=== PATIENT | male | born 1980 | race Caucasian/White ===

== ENCOUNTER 2020-08-05 02:17 | Emergency (ER) | payer BC ==
--- NOTE | 2020-08-05 02:29 | EDM.PDOC ---
ED [facility] GENERAL MEDICAL PROBLEM - General Stated Complaint: hip pain Time Seen by Provider: 08/05/20 02:17 Source of Information: Reports: Patient, EMS History Limitations: Reports: Intoxication - History of Present Illness INITIAL COMMENTS - FREE TEXT/NARRATIVE: Emergency department comes in by EMS with complaint of left hip injury. Patient was found to be out side after he had tripped and fallen over. It is unknown the length of time that he was outside however his friends had assisted by lifting him into the house in hopes of him sleeping it off until morning. The patient states he did have quite a few beers after work last night. He is unable to recall the length of time. He denies hitting his head or losing consciousness. He states he is able to remember all the events before and after falling over the cat. He states that he was just unable to get up due to the left hip discomfort and pain. He was able to contact friends to assist him into the house. Patient then began to have more extreme pain and ended up calling 911 for further assistance and evaluation emergency department the left hip pain. Patient denies any recent injuries or surgeries to the left hip. Patient also denies any anticoagulant use. Onset: Gradual Quality: Reports: Throbbing Severity: Moderate Improves with: Reports: Rest Worsens with: Reports: Movement Context: Reports: Trauma Associated Symptoms: Reports: No Other Symptoms Left Hip Pain Score (Numeric/FACES): 7 ED ROS GENERAL - Review of Systems Review Of Systems: Comprehensive ROS is negative, except as noted in HPI. Constitutional: Reports: No Symptoms HEENT: Reports: No Symptoms Respiratory: Reports: No Symptoms Cardiovascular: Reports: No Symptoms Endocrine: Reports: No Symptoms GI/Abdominal: Reports: No Symptoms : Reports: No Symptoms Musculoskeletal: Reports: Leg Pain Skin: Reports: No Symptoms Neurological: Reports: No Symptoms Psychiatric: Reports: No Symptoms Hematologic/Lymphatic: Reports: No Symptoms Immunologic: Reports: No Symptoms ED EXAM, GENERAL - Physical Exam Exam: See Below Exam Limited By: No Limitations General Appearance: Alert, WD/WN, No Apparent Distress Eye Exam: Bilateral Eye: EOMI, PERRL Ears: Normal External Exam, Normal Canal, Hearing Grossly Normal Ear Exam: Bilateral Ear: Canal Normal, TM normal Nose: Normal Inspection, Normal Mucosa, No Blood Throat/Mouth: Normal Inspection, Normal Lips, Normal Teeth, Normal Voice Head: Atraumatic, Normocephalic Neck: Normal Inspection, Supple, Non-Tender, Full Range of Motion Respiratory/Chest: No Respiratory Distress, Lungs Clear, Normal Breath Sounds, No Accessory Muscle Use, Chest Non-Tender Cardiovascular: Normal Peripheral Pulses, Regular Rate, Rhythm, No Edema, No Rub Peripheral Pulses: 4+: Radial (L), Radial (R) GI/Abdominal: Normal Bowel Sounds, Soft, Non-Tender, No Abnormal Bruit, No Mass Back Exam: Normal Inspection, Full Range of Motion Extremities: No Pedal Edema, Normal Capillary Refill, Leg Pain (left leg shortening ) Neurological: Alert, Oriented, CN II-XII Intact, Normal Cognition Psychiatric: Normal Affect, Normal Mood Skin Exam: Warm, Dry, Intact, Normal Color Course - Vital Signs Last Recorded V/S: Last Vital Signs Temp 36.9 C 08/05/20 02:25 Pulse 125 H 08/05/20 02:25 Resp 18 08/05/20 02:25 BP 140/81 08/05/20 02:25 Pulse Ox 94 L 08/05/20 02:25 - Orders/Labs/Meds Orders: Active Orders 24 hr Category Date Time Status Marks Catheter Insertion [Insert Urinary Catheter] [OM. Care 08/05/20 03:30 Ordered PC] Q24H Urinary Catheter Assessment [RC] ASDIRECTED Care 08/05/20 03:18 Active Hip Min 1V w Pelvis Lt [CR] Stat Exams 08/05/20 02:22 Taken Lactated Ringers [Ringers, Lactated] 1,000 ml Med 08/05/20 03:30 Active IV ASDIRECTED Medication Orders Lactated Ringer's (Ringers, Lactated) 1,000 mls @ 150 mls/hr IV ASDIRECTED CHANDNI Last Admin: 08/05/20 03:26 Dose: 150 mls/hr Documented by: BIETAMY Labs: Laboratory Tests 08/05/20 08/05/20 08/05/20 Range/Units 02:35 02:35 02:35 WBC 8.3 (4.0-10.0) x10^3/uL RBC 3.85 L (4.5-6.0) x10^6/uL Hgb 12.1 L (14.0-18.0) g/dL Hct 35.1 L (40.0-52.0) % MCV 91.2 (78.0-93.0) fL MCH 31.4 (26.0-32.0) pg MCHC 34.5 (32.0-36.0) g/dL RDW Coeff of Jeaneth 14.1 (10.0-15.0) % Plt Count 115 L (130-400) x10^3/uL Neut % (Auto) 80.5 H (50.0-80.0) % Lymph % (Auto) 10.4 L (25.0-50.0) % [place] % (Auto) 8.7 (2.0-11.0) % Eos % (Auto) 0.0 (0.0-4.0) % Baso % (Auto) 0.4 (0.2-1.2) % PT 14.0 H (9.9-12.5) SEC INR 1.3 L (2.0-3.5) Sodium 142 (136-145) mmol/L Potassium 2.3 L* (3.5-5.1) mmol/L Chloride 101 (98-107) mmol/L Carbon Dioxide 25 (21-32) mmol/L Anion Gap 18.3 H (5-15) mmol/L BUN 5 L (7-18) mg/dL Creatinine 0.9 (0.70-1.30) mg/dL Est Cr Clr Drug Dosing TNP Estimated GFR (MDRD) > 60 Glucose 117 H (70-99) mg/dL Calcium 8.0 L (8.5-10.1) mg/dL Corrected Calcium 9.04 (8.5-10.1) mg/dL Total Bilirubin 0.8 (0.2-1.0) mg/dL AST 195 H (15-37) U/L ALT 46 (16-63) U/L Alkaline Phosphatase 246 H (46-116) U/L Creatine Kinase (39-308) U/L Total Protein 7.4 (6.4-8.2) g/dL Albumin 2.7 L (3.4-5.0) g/dL Globulin 4.7 Albumin/Globulin Ratio 0.57 Ethyl Alcohol (0-3) mg/dL 08/05/20 08/05/20 Range/Units 02:35 02:55 WBC (4.0-10.0) x10^3/uL RBC (4.5-6.0) x10^6/uL Hgb (14.0-18.0) g/dL Hct (40.0-52.0) % MCV (78.0-93.0) fL MCH (26.0-32.0) pg MCHC (32.0-36.0) g/dL RDW Coeff of Jeaneth (10.0-15.0) % Plt Count (130-400) x10^3/uL Neut % (Auto) (50.0-80.0) % Lymph % (Auto) (25.0-50.0) % [place] % (Auto) (2.0-11.0) % Eos % (Auto) (0.0-4.0) % Baso % (Auto) (0.2-1.2) % PT (9.9-12.5) SEC INR (2.0-3.5) Sodium (136-145) mmol/L Potassium (3.5-5.1) mmol/L Chloride (98-107) mmol/L Carbon Dioxide (21-32) mmol/L Anion Gap (5-15) mmol/L BUN (7-18) mg/dL Creatinine (0.70-1.30) mg/dL Est Cr Clr Drug Dosing Estimated GFR (MDRD) Glucose (70-99) mg/dL Calcium (8.5-10.1) mg/dL Corrected Calcium (8.5-10.1) mg/dL Total Bilirubin (0.2-1.0) mg/dL AST (15-37) U/L ALT (16-63) U/L Alkaline Phosphatase (46-116) U/L Creatine Kinase 64 (39-308) U/L Total Protein (6.4-8.2) g/dL Albumin (3.4-5.0) g/dL Globulin Albumin/Globulin Ratio Ethyl Alcohol 285 H (0-3) mg/dL Meds: Medications Generic Name Dose Route Start Last Admin Trade Name Freq PRN Reason Stop Dose Admin Lactated Ringer's 1,000 mls @ 150 mls/hr 08/05/20 03:30 08/05/20 03:26 Ringers, Lactated IV 150 mls/hr ASDIRECTED CHANDNI Administration Discontinued Medications Generic Name Dose Route Start Last Admin Trade Name Freq PRN Reason Stop Dose Admin Fentanyl 50 mcg 08/05/20 03:57 08/05/20 04:07 Fentanyl 50 Mcg/Ml Sdv IVPUSH 08/05/20 03:58 50 mcg ONETIME ONE Administration Hydromorphone HCl Confirm 08/05/20 02:42 Hydromorphone 1 Mg/Ml Syringe Administered 08/05/20 02:43 Dose 1 mg .ROUTE .STK-MED ONE Potassium Chloride 20 meq 08/05/20 03:06 08/05/20 04:07 Potassium Chloride 20 Meq Tab.Er PO 08/05/20 03:07 20 meq ONETIME ONE Administration Departure - Departure Time of Disposition: 04:00 Disposition: DC/Tfer to Acute Hospital 02 Condition: Good Clinical Impression: Pelvic fracture Qualifiers: Encounter type: initial encounter Pelvic bone location: unspecified part of pelvis Fracture type: closed Fracture alignment: nondisplaced Qualified Code(s): S32.9XXA - Fracture of unspecified parts of lumbosacral spine and pelvis, initial encounter for closed fracture - Discharge Information *PRESCRIPTION DRUG MONITORING PROGRAM REVIEWED*: Not Applicable *COPY OF PRESCRIPTION DRUG MONITORING REPORT IN PATIENT LEANNE: Not Applicable Referrals: PCP,Unknown [Primary Care Provider] - Forms: Interfacility Transfer EMTALA Sepsis Event Note (ED) - Focused Exam Vital Signs: Vital Signs Temp Pulse Resp BP Pulse Ox 08/05/20 02:25 36.9 C 125 H 18 140/81 94 L - My Orders Last 24 Hours: My Active Orders 08/05/20 02:22 Hip Min 1V w Pelvis Lt [CR] Stat 08/05/20 03:18 Urinary Catheter Assessment [RC] ASDIRECTED 08/05/20 03:30 Marks Catheter Insertion [Insert Urinary Catheter] [OM.PC] Q24H Lactated Ringers [Ringers, Lactated] 1,000 ml IV ASDIRECTED - Assessment/Plan Last 24 Hours: My Active Orders 08/05/20 02:22 Hip Min 1V w Pelvis Lt [CR] Stat 08/05/20 03:18 Urinary Catheter Assessment [RC] ASDIRECTED 08/05/20 03:30 Marks Catheter Insertion [Insert Urinary Catheter] [OM.PC] Q24H Lactated Ringers [Ringers, Lactated] 1,000 ml IV ASDIRECTED Assessment:: 1. left hip pain 2. Left pelvic fracture 3. Hypokalemia Plan: 1. X-ray completed in the emergency department results reviewed with the patient 2. Ice Applied to the affected limb 3. Medication offered to the patient- pt was given Dilaudid prior to arrival 4. Marks catheter inserted 5. Klor-Con given orally for hypokalemia. [facility] care and [facility] of the patient 7. Patient will be transferred to a higher level of care needing further medical and/or surgical interventions 8. Patient and nursing staff was updated regarding the plan of care 9. Patient and family are agreeable to the above plan of care 10. All questions and concerns were addressed with the patient and family prior to discharge
[2020-08-05] MEDS ORDERED: HYDROmorphone 1 MG/ML Syringe ONE (02:42)
[2020-08-05 03:02] LABS: CHLORIDE,CL 101 mmol/L (98-107); SODIUM,NA 142 mmol/L (136-145)
[2020-08-05 03:05] LABS: ANION GAP 18.3 mmol/L (5-15)
[2020-08-05] MEDS ORDERED: Potassium Chloride 20 MEQ Tab.ER PO ONE (03:06)
[2020-08-05] MEDS ORDERED: Lactated Ringers 1,000 ML IV SCH (03:30)
[2020-08-05] MEDS ORDERED: fentaNYL 50 MCG/ML SDV IVPUSH ONE (03:57)
--- NOTE | 2020-08-05 10:30 | CR ---
[id number] RAD/RAD Pelvis 1-2V EXAM: SINGLE VIEW PELVIS. INDICATION: FALL COMPARISON: None. DISCUSSION: Acute obliquely oriented left femoral neck fracture which extends through the greater trochanter. No dislocation. IMPRESSION: 1. Left femoral intertrochanteric fracture. Magen Hutchins DO 08/05/20 1028 Thank you for allowing us to participate in the care of your patient.
== END 2020-08-05 05:00 | disposition short-term general hospital (02) ==
LOC: VM.ED 02:17
DX: S32.9XXA Fracture of unspecified parts of lumbosacral spine and pelvis, initial encounter for closed fracture (principal); W01.0XXA Fall on same level from slipping, tripping and stumbling without subsequent striking against object, initial encounter
CPT/HCPCS: 36415; 51702; 80053; 80307; 82550; 85025; 85610; 96374; 99283; 99285-25; A9270-GY; J3010; J7120